=== PATIENT | female | born 1945 | race Caucasian/White ===

== ENCOUNTER 2020-04-09 13:41 | Outpatient (CLI) | payer MEDICARE, SELFPAY ==
--- NOTE | ~2020-04-09 | CT_ITS ---
EXAMINATION: CTA abdomen DATE: 04/09/2020 15:02 INDICATION: Abdominal aortic aneurysm. TECHNIQUE: Computed tomographic angiography (CTA) of the abdomen was performed with 100 mL Omnipaque- 350 intravenous contrast. Automated exposure control and iterative reconstruction technique were empl oyed. The dose-length product was 580.14 mGy-cm. Maximum intensity projection 3D-reconstructions of t he aorta and other arteries were constructed by the technologist on a separate workstation. COMPARISON: CT abdomen and pelvis 03/26/2014 FINDINGS: The visualized portions of the lung bases demonstrate mild atelectasis. A calcified right l shivani nodule and calcified right hilar lymph nodes are consistent with old granulomatous disease. No pl eural effusion. The heart size is normal. There are coronary artery calcifications. No pericardial ef fusion. There is a 4.0 cm cyst in the liver. The gallbladder is distended, likely secondary to fastin g. Calcifications in the spleen are consistent with old granulomatous disease. The pancreas and right adrenal gland are normal. There is a 3.6 cm mass in left adrenal gland measuring soft tissue attenua tion, stable from 03/26/2014, consistent with an adenoma. There is cortical thinning of the kidneys. T here are cysts in the kidneys measuring up to 15 mm on the right. There are no dilated loops of bowel . There is a lap band around the proximal stomach with normal phi angle. There is calcified atheroscl erosis of the aorta and many of the other arteries. There is a 4.0 cm fusiform aneurysm of distal jose a cending aorta. There is no abdominal aortic aneurysm. There is no significant stenosis of celiac axis or superior mesenteric artery. There is moderate stenosis of right renal artery and mild stenosis of left renal artery. There are no pathologically enlarged lymph nodes. There is no free intraperitonea l fluid. There is lumbar dextroscoliosis and severe spondylosis. There are changes of anterior fusion procedures from L2 to S1 and posterior fusion procedure at L5-S1. IMPRESSION: 1. 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 2. Moderate right renal artery stenosis. Reviewed, dictated and finalized at location A.
[2020-04-09 14:54] LABS: Estimated Glomerular Filt Rate 54
== END 2020-04-09 13:42 | disposition home or self-care (01) ==
DX: I71.4 Abdominal aortic aneurysm, without rupture (principal)
CPT/HCPCS: 36415; 74175; Q9967

== ENCOUNTER 2020-04-18 09:40 | Emergency (ER) | payer MEDICARE, SELFPAY ==
--- NOTE | ~2020-04-18 | XR_ITS ---
XR chest 2V DATE: 04/18/2020 10:05 INDICATION: Chest wall pain. TECHNIQUE: PA and lateral views COMPARISON: 03/18/2019 CT thorax FINDINGS: Normal heart size. Aortic ectasia, calcification, tortuosity. No hilar or mediastinal enl argement. No pulmonary infiltrate or consolidation, pulmonary vascular congestion or pleural effusio n or pneumothorax. Fundoplication device. Scoliosis, diffuse osteopenia. IMPRESSION: No active cardiopulmonary disease Aortic atherosclerosis Reviewed, dictated and finalized at location A.
[2020-04-18 09:48] VITALS: BP 176/94; PULSE 68; RESP 20; TEMP 36.8; O2SAT 99
--- NOTE | 2020-04-18 09:55 | ED.GENADULT ---
HPI - General Adult General Chief complaint: Unspecified Stated complaint: BREAST HURTS LIKE THE DEVIL Time Seen by Provider: 04/18/20 09:43 History of Present Illness HPI narrative: Pain under the left breast for the past week. Getting worse. Increases with bending over. Better if she lays on her stomach. She believes that there may be a lump there. No injury. She has been walking more recently. No SOB. Related Data Home Medications Medication Instructions Recorded Confirmed amlodipine 10 mg PO DAILY 04/18/20 apixaban [Eliquis] 5 mg PO BID 04/18/20 aspirin [Aspirin Low Dose] 81 mg PO DAILY 04/18/20 furosemide 20 mg PO DAILY 04/18/20 indapamide 1.25 mg PO DAILY 04/18/20 metformin 500 mg PO DAILY 04/18/20 metoprolol tartrate [Lopressor] 25 mg PO Q12H 04/18/20 omeprazole 40 mg PO DAILY 04/18/20 potassium chloride 99 meq PO DAILY 04/18/20 Allergies Allergy/AdvReac Type Severity Reaction Status Date / Time cephalexin Allergy Unknown Itching Verified 04/18/20 09:55 Cephalosporins Allergy Unknown KEFLEX-BURN Unverified 04/24/19 14:48 ING,ITCHING ,RASH Kiwi Allergy Unknown Itching Uncoded 04/18/20 09:55 Review of Systems Review of Systems: All systems reviewed & are unremarkable except as noted in HPI and below PMFSH Family History Family History (Updated 06/11/16 @ 23:19 by DOCTOR UNKNOWN) Sibling Family history of diabetes mellitus in first degree relative Family history of lung cancer Family history of malignant neoplasm of uterus Family history of heart disease in male family member before age 55 Hypertension Family history of congenital heart disease Family history of type 2 diabetes mellitus Mother Family history of malignant neoplasm of brain Social History Social History Smoking status: Former smoker Second hand tobacco smoke exposure: No Smoking end date: 11/14/12 Alcohol intake: never Gender identity (if verbalized by the patient): Female Exam Const: General: no acute distress and alert Nutritional Appearance: well nourished Orientation/consciousness: patient oriented x3 HENMT: Head: normal to inspection Chest: Chest palpation & inspection: tenderness (under left preast) Other: Small cutaneous cyst without tenderness or sign of infection Resp: Effort & Inspection: normal respiratory effort Auscultation: clear to auscultation bilaterally Cardio: Rate: regular rate Rhythm: regular rhythm Neuro: General: patient oriented x3, moves all extremities and CN's II-XI intact bilaterally Speech: normal speech Course Vital Signs Vital signs: Vital Signs Temperature 36.8 C 04/18/20 09:48 Pulse Rate 68 04/18/20 09:48 Respiratory Rate 20 04/18/20 09:48 Blood Pressure 176/94 H 04/18/20 09:48 Pulse Oximetry 99 04/18/20 09:48 Temperature 36.7 C 04/18/20 12:19 Pulse Rate 70 04/18/20 12:19 Respiratory Rate 16 04/18/20 12:19 Blood Pressure 152/72 H 04/18/20 12:19 Pulse Oximetry 99 04/18/20 12:19 Medical Decision Making MDM Narrative Medical decision making narrative: She seems to have a chest wall strain. x-ray negative. I will start muscle relaxer and she can follow-up with PCP in a few days. Vital Signs Vital Signs: Vital Signs Temperature 36.8 C 04/18/20 09:48 Pulse Rate 68 04/18/20 09:48 Respiratory Rate 04/18/20 09:48 Blood Pressure 176/94 H 04/18/20 09:48 Pulse Oximetry 99 04/18/20 09:48 Temperature 36.7 C 04/18/20 12:19 Pulse Rate 70 04/18/20 12:19 Respiratory Rate 16 04/18/20 12:19 Blood Pressure 152/72 H 04/18/20 12:19 Pulse Oximetry 99 04/18/20 12:19 Discharge Plan Discharge Clinical Impression: Anterior chest wall pain Patient Disposition: Home, Self-Care Condition: Stable Instructions: Chest Wall Pain (ED) Prescriptions: New cyclobenzaprine 10 mg tablet 10 mg PO TID PRN (Reason: chest wall pain) Qty: 10 RF: 0 acetaminophen [Tylenol Arthritis
[2020-04-18 11:15] VITALS: BP 158/68; PULSE 72; RESP 18; O2SAT 99
--- NOTE | 2020-04-18 11:16 | PC.NURSE ---
Introduced to patient and report received from RN.
[2020-04-18 12:19] VITALS: BP 152/72; PULSE 70; RESP 16; TEMP 36.7; O2SAT 99
== END 2020-04-18 12:29 | disposition home or self-care (01) ==
PROVIDERS: Emergency Provider Emergency Medicine; PCP Family Medicine
DX: R07.89 Other chest pain (principal); Z79.01 Long term (current) use of anticoagulants; Z79.84 Long term (current) use of oral hypoglycemic drugs; Z87.891 Personal history of nicotine dependence; I70.0 Atherosclerosis of aorta
CPT/HCPCS: 71046; 99283

== ENCOUNTER 2020-07-22 14:38 | Outpatient (CLI) | payer MEDICARE, SELFPAY ==
--- NOTE | ~2020-07-22 | MM_ITS ---
EXAMINATION: MM screening joce BI w willard HISTORY: Screening TECHNIQUE: Craniocaudal and mediolateral oblique 3-D tomosynthesis images were obtained and synthetic 2-D images were generated. CAD analysis was submitted and interpreted. COMPARISON: No prior mammogram is available for comparison at this institution. BREAST PARENCHYMAL COMPOSITION: There are scattered areas of fibroglandular density. FINDINGS: There is focal architectural distortion upper outer quadrant of the left breast, posterior depth. There is no mammographic evidence for malignancy in the right breast. IMPRESSION: 1. Focal architectural distortion upper outer left breast. 2. Additional mammographic views and possible breast ultrasound are recommended. BI-RADS Category 0: Incomplete: Needs additional imaging evaluation. Reviewed, dictated and finalized at location A. IMPRESSION: 1. Focal architectural distortion upper outer left breast. 2. Additional mammographic views and possible breast ultrasound are recommended . BI-RADS Category 0: Incomplete: Needs additional imaging evaluation.
--- NOTE | ~2020-07-22 | US_ITS ---
EXAMINATION: US carotid duplex BI DATE: 07/22/2020 15:26 INDICATION: Loss of vision. Carotid bruit. TECHNIQUE: Grayscale, color Doppler, and pulsed Doppler images of the cervical carotid arteries were obtained. The degree of vessel stenosis is placed in one of the following categories: normal, <50%, 5 0-69%, >=70% but less than near-occlusion, near-occlusion, or total occlusion. Note that percent sten osis relative to normal distal artery lumen diameter is indirectly measured from velocity measurement s as described by Kenan, et al. Radiology 2003; 229:340-346. Notes: Normal: Peak systolic velocity <125 centimeters/sec and no plaque <50%. Peak systolic velocity <125 ( EDV <40; ICA/CCA PSV ratio <2.0; used these factors only a tandem lesions or low cardiac output or co ntralateral disease) 50-69 %: PSV 125-230 (EDV 40-100; ratio 2-4) >= 70% but less than near occlusion: PSV greater than 230 (EDV > 100; ratio> 4.0) Near Occlusion: PSV that is variable; markedly narrowed lumen Occlusion: Absent flow on color/spectral Doppler and no lumen on sanz scale. COMPARISON: None. FINDINGS: RIGHT: The right common carotid artery (CCA) peak systolic velocity (PSV) is 72 cm/s. The right internal car otid artery (ICA) PSV is 119 cm/s. The right ICA end-diastolic velocity (EDV) is 19 cm/s. The right I CA/CCA PSV ratio is 1.7. The external carotid artery (ECA) PSV is 157 cm/s. There is antegrade flow i n the right vertebral artery. LEFT: The left CCA PSV is 82 cm/s. The left ICA PSV is 108 cm/s. The left ICA EDV is 36 cm/s. The left ICA/ CCA PSV ratio is 1.3. The ECA PSV is 97 cm/s. There is antegrade flow in the left vertebral artery. IMPRESSION: 1. Less than 50% stenosis in the right internal carotid artery by sonographic criteria. 2. Less than 50% stenosis in the left internal carotid artery by sonographic criteria. Reviewed, dictated and finalized at location A. IMPRESSION: 1. Less than 50% stenosis in the right internal carotid artery by sonographic c bebeto. 2. Less than 50% stenosis in the left internal carotid artery by sonographic cr gladis.
== END 2020-07-22 14:39 | disposition home or self-care (01) ==
PROVIDERS: PCP Family Medicine; Visit Provider Family Medicine
DX: Z12.31 Encounter for screening mammogram for malignant neoplasm of breast (principal); M79.89 Other specified soft tissue disorders; R92.8 Other abnormal and inconclusive findings on diagnostic imaging of breast; I65.23 Occlusion and stenosis of bilateral carotid arteries
CPT/HCPCS: 77063; 77067; 93880

== ENCOUNTER 2020-08-11 13:06 | Outpatient (CLI) | payer MEDICARE, SELFPAY ==
--- NOTE | ~2020-08-11 | MMUS_ITS ---
EXAMINATION: MM diagnostic mammo unilat LT, US breast LT limited HISTORY: Left breast architectural distortion on screening mammogram TECHNIQUE: Additional 3-D tomosynthesis images of the left breast were performed and synthetic 2-D im ages were generated. CAD analysis was submitted and interpreted. High resolution limited left breast ultrasound was performed. COMPARISON: 07/22/2020, 05/10/2019, 04/10/2019 FINDINGS: MAMMOGRAPHIC FINDINGS: There is architectural distortion in the posterior third of the slightly upper breast at the 2:00 loc ation 10 cm from the nipple. In addition, there is a an approximately 6 mm spiculated mass in the mid dle third of the central, slightly outer breast 7 cm from the nipple at the 3:00 location. ULTRASOUND: There is an approximately 7 mm x 4 mm hypoechoic mass with posterior shadowing and angular and indist inct margins at the 3:00 location 2 cm from the nipple. No definite sonographic correlate is identifi ed for the architectural distortion identified at the 2:00 location on the mammogram. IMPRESSION: 1. Architectural distortion in the posterior third of the left breast and mass in the central, slight ly outer breast, both suspicious findings. 2. Biopsy is recommended. Could consider ultrasound guided biopsy of the mass and 3-D tomosynthesis g uided biopsy of the architectural distortion or 3-D tomosynthesis guided biopsy of both areas. BI-RADS category 4, suspicious findings. Reviewed, dictated and finalized at location A. IMPRESSION: 1. Architectural distortion in the posterior third of the left breast and mass in the central, slightly outer breast, both suspicious findings. 2. Biopsy is recommended. Could consider ultrasound guided biopsy of the mass a nd 3-D tomosynthesis guided biopsy of the architectural distortion or 3-D tomos ynthesis guided biopsy of both areas. BI-RADS category 4, suspicious findings.
== END 2020-08-11 13:07 | disposition home or self-care (01) ==
PROVIDERS: PCP Family Medicine; Visit Provider Family Medicine
DX: R92.8 Other abnormal and inconclusive findings on diagnostic imaging of breast (principal)
CPT/HCPCS: 76642; 77065

== ENCOUNTER 2021-01-29 10:53 | Outpatient (CLI) | payer MEDICARE, SELFPAY ==
--- NOTE | ~2021-01-29 | US_ITS ---
EXAMINATION: US venous doppler [facility] DATE: 01/29/2021 11:46 INDICATION: Left calf pain. TECHNIQUE: Grayscale ultrasound images without and with compression and Doppler ultrasound images of the left lower extremity veins were obtained. COMPARISON: Ultrasound 05/06/2017 FINDINGS: The visualized portions of left common femoral vein, profunda (deep) femoral vein, femoral vein, popl iteal vein, and greater saphenous vein outflow are patent. The calf veins are not well-visualized. IMPRESSION: 1. No deep venous thrombosis. Reviewed, dictated and finalized at location A.
== END 2021-01-29 10:54 | disposition home or self-care (01) ==
PROVIDERS: PCP Family Medicine
DX: C50.919 Malignant neoplasm of unspecified site of unspecified female breast (principal); M79.662 Pain in left lower leg
CPT/HCPCS: 93971

== ENCOUNTER 2021-02-11 11:02 | Observation (INO) | payer MEDICARE, SELFPAY ==
[2021-02-11] VITALS (15 sets, daily range): BP systolic 140–190; BP diastolic 55–95; PULSE 50–78; RESP 13–25; TEMP 36.1–36.6; O2SAT 96–100; BMI 42.2
--- NOTE | ~2021-02-11 | CT_ITS ---
EXAMINATION: CT brain wo con DATE: 02/11/2021 12:41 INDICATION: Dizziness TECHNIQUE: Computed tomography (CT) of the head was performed without intravenous contrast. Sagittal and coronal reconstructions were performed. The mA was adjusted according to patient size. Iterative reconstruction technique was employed. The dose-length product was 605.33 mGy-cm. COMPARISON: head CT dated 04/24/2019 FINDINGS: No acute intracranial hemorrhage, acute infarction or abnormal extra axial fluid collection. There is moderate scattered white matter hypoattenuation consistent with chronic small vessel ischemic diseas e. Symmetric prominence of the sulci consistent with mild age-appropriate diffuse cerebral volume los s. Ventricles are normal and symmetric. No mass/mass effect. Changes of bilateral intraocular lens r eplacement. The orbits, paranasal sinuses and mastoid air cells are normal. Intracranial calcified ce rebral atherosclerosis is noted. IMPRESSION: 1. No acute intracranial process. 2. Age-related changes including mild diffuse volume loss and moderate scattered white matter hypoatt enuation consistent with chronic small vessel ischemic disease. Reviewed, dictated and finalized at location A. IMPRESSION: 1. No acute intracranial process. 2. Age-related changes including mild diffuse volume loss and moderate scattere d white matter hypoattenuation consistent with chronic small vessel ischemic di sease.
--- NOTE | ~2021-02-11 | US_ITS ---
EXAMINATION: US carotid duplex BI DATE: 02/12/2021 11:21 INDICATION: Speech and language deficit. Dizziness. TECHNIQUE: Grayscale, color Doppler, and pulsed Doppler images of the cervical carotid arteries were obtained. The degree of vessel stenosis is placed in one of the following categories: normal, <50%, 5 0-69%, >=70% but less than near-occlusion, near-occlusion, or total occlusion. Note that percent sten osis relative to normal distal artery lumen diameter is indirectly measured from velocity measurement s as described by Kenan, et al. Radiology 2003; 229:340-346. COMPARISON: None. FINDINGS: RIGHT: The right common carotid artery (CCA) peak systolic velocity (PSV) is 103 cm/s. The right internal ca rotid artery (ICA) PSV is 77 cm/s. The right ICA end-diastolic velocity (EDV) is 18 cm/s. The right I CA/CCA PSV ratio is 0.8. Grayscale and color Doppler images yield an estimate of <50% diameter reduct ion from plaque in the ICA. The external carotid artery (ECA) PSV is 82 cm/s. There is antegrade flow in the right vertebral artery. LEFT: The left CCA PSV is 78 cm/s. The left ICA PSV is 78 cm/s. The left ICA EDV is 21 cm/s. The left ICA/C CA PSV ratio is 1.0. Grayscale and color Doppler images yield an estimate of <50% diameter reduction from plaque in the ICA. The ECA PSV is 57 cm/s. There is antegrade flow in the left vertebral artery. IMPRESSION: 1. <50% stenosis in the right internal carotid artery. 2. <50% stenosis in the left internal carotid artery. Reviewed, dictated and finalized at location A.
--- NOTE | ~2021-02-11 | CT_ITS ---
EXAMINATION: CT lumbar spine wo con EXAM DATE: 02/12/2021 11:19 INDICATION: Degenerative disc disease. Back pain. TECHNIQUE: Spiral CT of the lumbar spine was performed without contrast. Axial, coronal and sagittal images were reviewed. The dose-length product (DLP) for this examination was 1300.23 mGy-cm. The exposure was tailored according to patient size (auto mA exposure control), and iterative reconstruct ion (ASIR) was used as additional dose reduction technique. Correlation is made to lumbar MRI 2. FINDINGS: There has been interval fusion of the lumbar spine from L2 through S1, with interbody devic es at each of these levels, solid bone bridging L2-L5 and incomplete solid bone bridging at L5-S1. Al so posterior fusion with pedicular screws at L5-S1. A portion of the left S1 pedicular screw traverse s the S1-2 neural foramina. There are no acute fractures identified. There is moderate dextroscoliosi s centered at the L2 level. Moderate to severe disc disease at L1-2, which may have early osseous kadeem dging, effusion along its concave left side. Moderate disc disease at T12-L1. Incidental note made of saccular aortic aneurysm just above the aortic hiatus up to 4.6 cm. There is also a 3 cm low-density left adrenal gland lesion consistent with adenoma. Level by level evaluation: T12-L1: There is a minimal diffuse disc bulge. Facet arthropathy: Mild. Neural foraminal stenosis: No stenosis. Central canal stenosis: No stenosis. L1-L2: There is a mild diffuse disc bulge. Facet arthropathy: Mild to moderate. Neural foraminal stenosis: Moderate to severe left, mild right. Central canal stenosis: No stenosis. L2-L3: This level is fused. Facet arthropathy: Moderate, partially fused. Neural foraminal stenosis: No stenosis. Central canal stenosis: No stenosis. L3-L4: This level is fused. Facet arthropathy: Moderate, partially fused. Neural foraminal stenosis: Mild left. Central canal stenosis: No stenosis. L4-L5: This level is fused. Facet arthropathy: Moderate, partially fused. Neural foraminal stenosis: Mild to moderate right, mild left. Central canal stenosis: No stenosis. L5-S1: This level is fused. Facet arthropathy: Moderate, partially fused on the right. Neural foraminal stenosis: Moderate to severe right, mild left. Central canal stenosis: No stenosis. IMPRESSION: 1. Fusion L2-S1. 2. Moderate upper lumbar dextroscoliosis. 3. Moderate to severe left neural foraminal stenosis at L1-2 and right neural foraminal stenosis at L5-S1, the most narrowed levels. 4. Incidental lower thoracic aortic saccular 4.6 cm aneurysm. 5. No acute lumbar findings. Reviewed, dictated and finalized at location A.
--- NOTE | ~2021-02-11 | MR_ITS ---
EXAMINATION: MR brain/brain stem wo/w con EXAM DATE: 02/12/2021 10:50 INDICATION: Ataxia, bilateral leg weakness. TECHNIQUE: Magnetic resonance imaging (MRI) of the brain/brain stem obtained without contrast. Sagit magalys T1, axial diffusion, gradient echo (T2*), T1, T2, FLAIR sequences obtained. Patient was then inj ected with 18 cc intravenous Multihance contrast. Axial and coronal postcontrast T1 weighted sequence s obtained. Comparison is made to prior examination from 04/18/2010. Correlation was made with head CT from yesterday. FINDINGS: There are no areas of restricted diffusion to suggest acute infarction. There is no acute hemorrhage seen on the T2*, a hemosiderin sensitive sequence. No intraparenchymal brain mass lesion. There is punctate old left thalamic the lacunar infarction better seen on CT. Dilated perivascular spaces. There is moderate periventricular and subcortical T2/FLAIR signal hyperintensity, nonspecifi c but probably related to small vessel ischemic disease (microangiopathy). There is mild prominence of the sulci and ventricles related to cerebral atrophy. There are no extra-axial collections. Fl ow voids are seen in the cerebral arteries on the T2-weighted sequences consistent with their expecte d patency. Patient has had bilateral ocular lens surgery. Soft tissue is unremarkable. IMPRESSION: 1. No acute intracranial findings. 2. Chronic age related findings. 3. Punctate old left thalamic lacunar infarction. Reviewed, dictated and finalized at location A.
--- NOTE | 2021-02-11 11:11 | ECG_ITS ---
Measurements Intervals [place]irt[place] Rate: 53 P: 33 PA: 188 QRS: -26 QRSD: 94 T: 4 QT: 428 QTc: 403 Interpretive Statements SINUS BRADYCARDIA DELAYED PRECORDIAL R/S TRANSITION VOLTAGE CRITERIA FOR LVH BORDERLINE T WAVE ABNORMALITY- INFERIOR LEADS BASELINE ARTIFACT- I, II, III, AVR, AVL, V2, V6 BORDERLINE ECG Electronically Signed On 02-11-2021 11:40:25 CDT by Unruly Mcgowan D.O.
[2021-02-11 11:29] LABS: Add Urine Microscopic? NO; Appearance Urine Clear (Clear); Bilirubin Urine Negative (Negative); Blood Urine Negative (Negative); Color Urine Straw (Yellow); Glucose Urine UA Negative (Negative); Ketones Urine Negative (Negative); Leukocyte Esterase Ur Negative LEU/UL (Negative); Nitrate Urine Negative (Negative); Protein Urine Negative (Negative); Specific Grav Ur 1.008 (1.001-1.035); Urobilinogen Urine Negative mg/dL (<2.0)
--- NOTE | 2021-02-11 11:40 | PC.NURSE ---
Unable to obtain labs/iv access x 2, called Sharona MILLIGAN from vascular access and will come initiate IV and draw labs. Pt aware.
[2021-02-11 12:29] LABS: Basophils Absolute Auto 0.1 K/mm3 (0.0-0.1); Basophils Percent Auto 0.7 % (0.2-1.2); Eosinophils Absolute Auto 0.4 K/mm3 (0-0.3); Eosinophils Percent Auto 3.5 % (0-4.4); Hematocrit 33.8 % (37.0-47.0); Immature Granulocyte Absolute 0.13 K/mm3 (0.00-0.031); Immature Granulocyte Percent A 1.2 % (0-0.5); Lymphocytes Percent Auto 18.7 % (18.3-44.2); Mean Corpuscular HGB Conc 32.5 g/dl (32-36); Mean Corpuscular Hemoglobin 28.9 pg (26-34); Mean Corpuscular Volume 88.9 fl (80-100); Mean Platelet Volume 10.2 fl (7.4-10.4); Monocytes Absolute Auto 0.5 K/mm3 (0.1-0.6); Monocytes Percent Auto 4.7 % (2.6-8.5); Neutrophils Absolute Auto 7.6 K/mm3 (1.3-6.7); Neutrophils Percent Auto 71.2 % (45.5-73.1); Platelet Count Result 250 k/mm3 (150-375); Red Cell Distribution Width 13.4 % (11.5-14.5); White Blood Count 10.7 K/mm3 (4.5-10.0)
--- NOTE | 2021-02-11 12:32 | PC.NURSE ---
Pt to CT scan via stretcher at this time.
[2021-02-11 12:44] LABS: Alanine Aminotransferase 14 U/L (4-35); Albumin Level 4.2 g/dL (3.5-5.1); Alkaline Phosphatase 84 U/L (38-126); Anion Gap 5 mmol/L (8-16); Aspartate Amino Transferase 22 U/L (14-36); Bilirubin,Total 0.3 mg/dL (0.2-1.3); Blood Urea Nitrogen 26 mg/dL (7-17); Carbon Dioxide 31 mmol/L (22-30); Chloride 104 mmol/L (98-107); Estimated CRCL calculation 52 ml/min; Estimated Glomerular Filt Rate > 60; Glucose 124 mg/dL (65-105); Potassium 4.5 mmol/L (3.4-5.0); Sodium 140 mmol/L (137-145)
[2021-02-11] MEDS: MECLIZINE HCL 25 MG TABLET PO (13:15)
[2021-02-11] MEDS: SODIUM CHLORIDE 0.9% IV 1,000 ML 999 ML IV CONT (13:15)
--- NOTE | 2021-02-11 13:30 | ED.WEAKNESS ---
HPI - Weakness History of Present Illness HPI Narrative: Patient is a 45-year-old female who presents to the ER with weakness. Patient reports she was getting some rugs out of a utility closet when her right leg can give out on her and she fell to the ground. She then felt too weak to get back up. Denies paralysis in her legs or arms. No slurred speech or facial droop. Reports she gets dizziness with positional change. No urinary frequency urgency or dysuria. No chest pain or chest pressure. Did not strike her head or lose consciousness. <Colby Chandler MD - Last Filed: 02/11/21 15:23> Related Data Home medications: Home Medications Medication Instructions Recorded Confirmed amlodipine 10 mg PO DAILY 02/11/21 02/11/21 apixaban [Eliquis] 5 mg PO BID 02/11/21 02/11/21 atorvastatin 10 mg PO DAILY 02/11/21 02/11/21 carboxymethylcell-glycerin(PF) 1 drp EACH EYE BID PRN 02/11/21 02/11/21 [Refresh Relieva PF] docusate sodium [Stool Softener] 50 mg PO DAILY PRN 02/11/21 02/11/21 letrozole 2.5 mg PO DAILY 02/11/21 02/11/21 magnesium 250 mg PO DAILY 02/11/21 02/11/21 melatonin 5 mg PO HS PRN 02/11/21 02/11/21 metformin 1,000 mg PO DAILY 02/11/21 02/11/21 metformin 500 mg PO DAILY 02/11/21 02/11/21 metoprolol tartrate 25 mg PO BID 02/11/21 02/11/21 mirabegron [Myrbetriq] 50 mg PO DAILY 02/11/21 02/11/21 nkjgbusffocz-nkz-hscd-FA-vit K 1 tablet PO DAILY 02/11/21 02/11/21 [Adults Multivitamin] omeprazole 40 mg PO DAILY 02/11/21 02/11/21 potassium 99 mg PO DAILY 02/11/21 02/11/21 vitamins A,C,B-dtjr-cdyqbe 1 tablet PO BID 02/11/21 02/11/21 [Ocuvite Preservision] <Colby Chandler MD - Last Filed: 02/11/21 15:23> Allergies/Adverse reactions: Allergies Allergy/AdvReac Type Severity Reaction Status Date / Time cephalexin Allergy Unknown Itching Verified 02/11/21 11:10 Cephalosporins Allergy Unknown KEFLEX-BURN Verified 02/11/21 11:10 ING,ITCHING ,RASH Kiwi Allergy Unknown Itching Uncoded 02/11/21 11:10 <Colby Chandler MD - Last Filed: 02/11/21 15:23> Review of Systems Review of Systems: All systems reviewed & are unremarkable except as noted in HPI and below <Colby Chandler MD - Last Filed: 02/11/21 15:23> Constitutional: Constitutional: Denies chills, Denies fever(s) and Reports weakness <Colby Chandler MD - Last Filed: 02/11/21 15:23> ENT: Denies nasal congestion and Denies sore throat <Colby Chandler MD - Last Filed: 02/11/21 15:23> Cardiovascular: Cardiovascular: Denies chest pain, Denies rapid heart rate and Denies radiating jaw, neck or arm pain <Colby Chandler MD - Last Filed: 02/11/21 15:23> Respiratory: Respiratory: Denies cough, Denies dyspnea and Denies wheezing <Colby Chandler MD - Last Filed: 02/11/21 15:23> Neurologic: Reports dizziness, Denies syncope, Denies headache(s), Denies focal weakness and Denies numbness <Colby Chandler MD - Last Filed: 02/11/21 15:23> [facility] Past Medical History Medical History: Medical History (Updated 02/11/21 @ 13:45 by Colby Chandler MD) Atrial fibrillation Diabetes History of depression History of left heart catheterization Hypercholesterolemia Hypertension Hypothyroidism <Colby Chandler MD - Last Filed: 02/11/21 15:23> Surgical History Surgical History: Surgical History (Updated 02/11/21 @ 13:45 by Colby Chandler MD) History of appendectomy History of hysterectomy History of laparoscopic adjustable gastric banding <Colby Chandler MD - Last Filed: 02/11/21 15:23> Family History Family History: Family History (Updated 06/11/16 @ 23:19 by DOCTOR UNKNOWN) Sibling Family history of diabetes mellitus in first degree relative Family history of lung cancer Family history of malignant neoplasm of uterus Family history of heart disease in male family member before age 55 Hypertension Family history of congenital heart disease Family history of type 2
--- NOTE | 2021-02-11 14:48 | PC.NURSE ---
Pt unable to ambulate, had 2 person assist for getting out of stretcher and states My legs are just too weak. They feel like they cant hold me up. Pt states she does not normally use a walker to get around. Pt states I just feel like my legs are collapsing under me. Bilat leg weakness, diag w/ neuropathy in past for left leg, denies taking PO meds for this. EDP made aware.
--- NOTE | 2021-02-11 18:39 | ADMGEN ---
This patient, Evonne Mancilla, was admitted to 2 Medical Room 244-01. Patient/family oriented to hospital policies and general routines including ID bracelet, bed and alarms, visiting hours, pain management, procedures, bathroom and other care routines, personal items, smoking policy, room service/diet, and visiting hours. Information on how to activate the Rapid Response Team has been discussed. Patient/Family are encouraged to report perceived risks to care and to ask questions if they do not understand what they are told or what they should do.
[2021-02-11 21:26] LABS: Glucose Point of Care 161 (65-105)
--- NOTE | 2021-02-11 22:03 | PM.IMHP ---
H&P: HPI History of Present Illness Date/Time: 02/11/21 22:03 this is a 75-year-old female patient who has a history of neuropathy. She has had no prior history of any CVAs. She does have a history of atrial fibrillation and is on Eliquis. Patient is diabetic and her blood sugar was anywhere from 124-161 today. The patient has had multiple falls in the past. She does have a walker and states she uses it when she needs it. However today she was picking up a rug said thrown the washer and she said she felt funny in her face and her right leg went out and she fell and could not get up. The patient is having some weakness to her lower extremities. She is now able to raise both of her legs. The left appears more weak than the right and she stated that how typically is but today her right was weaker than the left and her leg gave out from underneath of her. She did not slip on anything that she could tell. She did not hit her head. Patient's head CT was read as no acute intracranial process. Age-related changes including mild diffuse volume loss and moderate scattered white matter hypoattenuation consistent with chronic small vessel ischemic disease. On 01/29/2021 which was read as no deep vein thrombosis. She is not complaining of any discomfort in her lower extremities. She is not feeling any dizziness at this time. She has not started any new medication. She lives home alone and has a call alert button. No fever no chills. No urinary symptoms. The patient was moving herself in bed without difficulty. The patient was not able to get up and walk today in the emergency room and nearly fell backwards. The ER physician felt that the patient needed to stay overnight to be evaluated for possible CVA. H&H 11.0 in 33.8. The patient is being admitted for observation on the date of service of 02/11/2021. Chief Complaint: Weakness Review of Systems Review of Systems: Narrative: As per HPI All systems reviewed & are unremarkable except as noted in HPI and below Constitutional: Constitutional: Reports as per HPI and Reports no additional constitutional complaints Eyes: Eyes: Reports as per HPI and Reports no additional eye complaints ENT: Reports system reviewed and no additional complaints, except as documented and Reports Normal hearing present Cardiovascular: Cardiovascular: Reports no additional cardiovascular complaints Respiratory: Respiratory: Reports no additional respiratory complaints and Reports no additional respiratory complaints Gastrointestinal: Gastrointestinal: Reports as per HPI and Reports no additional gastrointestinal complaints Musculoskeletal: Musculoskeletal: Reports no additional musculoskeletal complaints Integumentary/Breasts: Skin/Breast: Reports system reviewed and no additional complaints, except as docu and Reports as per HPI Neurologic: Reports system reviewed and no additional complaints, except as documented, Reports as per HPI and Reports Normal hearing present Psychiatric: Psychiatric: Reports no additional psychiatric complaints and Reports as per HPI Endocrine: Endocrine: Reports no additional endocrine complaints Hematologic/Lymphatic: Hematologic/Lymphatic: Reports no additional hematologic/lymphatic complaints Allergic/Immunologic: Allergic/Immunologic: Reports no additional allergic/immunologic complaints [facility] Past Medical History Medical History (Updated 02/11/21 @ 22:21 by Ignacia Levy NP) Abdominal aortic aneurysm Atrial fibrillation On Eliquis Chronic GERD Degenerative disc disease Diabetes History of depression History of left heart catheterization Hypercholesterolemia Hypertension Hypothyroidism Mild chronic obstructive pulmonary disease As for PFTs in 2016 Vocal cord paralysis Weakness Surgical History Surgical History (Updated 02/11/21 @ 22:13 by Ignacia Levy NP) H/O cardiac catheterization X2 without intervention H/O colonoscopy with polypectomy H/O thyroi
[2021-02-12] VITALS (9 sets, daily range): BP systolic 150–170; BP diastolic 52–98; PULSE 56–80; RESP 16–18; TEMP 36.2–36.8; O2SAT 96–99
--- NOTE | 2021-02-12 | ECHO_ITS ---
Patient Info Name: Evonne Mancilla Age: 75 years : 1945 Gender: Female Ht: 60 in Wt: 216 lbs BSA: 2.09 m2 HR: 60 bpm BP: 160 / 64 mmHg Heart Rhythm: Sinus Rhythm Technical Quality: Good Exam Date: 02/12/2021 9:21 AM Exam Location: [facility] Exam Room: 244 Patient Status: Inpatient Admit Date: 02/11/2021 Staff Ordering Physician: Ignacia Levy NP Track Welder: Karen Aquino RDCS Attending Provider: Jorge Jauregui PA-C Referring Physician: Mildred TEJEDA; Exam Type: CA echo doppler color flow Study Info Indications - WEAKNESS Complete two-dimensional, color flow and Doppler transthoracic echocardiogram is performed. Summary 1. Complete two-dimensional, color flow and Doppler transthoracic echocardiogram is performed. 2. Left ventricular chamber dimension is normal. 3. Left ventricular systolic function is normal, estimated at 60-65%. 4. There is mildly increased left ventricular wall thickness. 5. The left ventricular diastolic function is grade I diastolic dysfunction. 6. There is mild aortic valve sclerosis. 7. There is mild aortic valve regurgitation. 8. There is mild mitral valve regurgitation. 9. There is mild tricuspid valve regurgitation. 10. Mild pulmonary hypertension, estimated pulmonary arterial systolic pressure is 38 mmHg. 11. Cystic structure seen in the liver. Probable hepatic cyst or even the gallbladder but recommend dedicated right upper quadrant ultrasound. Left Ventricle Left ventricular chamber dimension is normal. Left ventricular systolic function is normal, estimated at 60-65%. There is mildly increased left ventricular wall thickness. The left ventricular diastolic function is grade I diastolic dysfunction. Right Ventricle Right ventricular chamber dimension is normal. Right ventricular systolic function is normal. Left Atria Left atrial chamber dimension is normal. Right Atria Right atrial chamber dimension is normal. Atrial Septum Intact interatrial septum visualized by color flow imaging. Aortic Valve The aortic valve is trileaflet. There is mild aortic valve sclerosis. There is no aortic valve stenosis. There is mild aortic valve regurgitation. Pulmonic Valve The pulmonic valve is normal. There is no pulmonic valve stenosis. There is trace pulmonic regurgitation. Mitral Valve The mitral valve has calcified annulus. There is no mitral valve stenosis. There is mild mitral valve regurgitation. Tricuspid Valve The tricuspid valve leaflets are normal. There is no significant tricuspid valve stenosis. There is mild tricuspid valve regurgitation. Mild pulmonary hypertension, estimated pulmonary arterial systolic pressure is 38 mmHg. Other Findings Cystic structure seen in the liver. Probable hepatic cyst or even the gallbladder but recommend dedicated right upper quadrant ultrasound. Pericardium/Pleural The pericardium appears normal. There is no pericardial effusion. Inferior Vena Cava Normal inferior vena cava with >50% collapse upon inspiration consistent with normal right atrial pressure, 10 mmHg. Aorta The aortic root size at the sinus of Valsalva is normal. The prox ascending aorta size is normal. There is mild aortic atherosclerosis. Left Ventricular Outflow Tract Name Value Normal
[2021-02-12] MEDS: METOPROLOL TARTRATE 25 MG TABLET PO ×2 (00:03→09:19)
[2021-02-12] MEDS: APIXABAN 5 MG TABLET PO ×2 (00:04→09:20)
[2021-02-12 06:06] LABS: Basophils Absolute Auto 0.1 K/mm3 (0.0-0.1); Basophils Percent Auto 0.7 % (0.2-1.2); Eosinophils Absolute Auto 0.4 K/mm3 (0-0.3); Eosinophils Percent Auto 3.5 % (0-4.4); Hemoglobin 10.7 g/dL (12.0-15.0); Immature Granulocyte Percent A 0.9 % (0-0.5); Lymphocytes Percent Auto 16.7 % (18.3-44.2); Mean Corpuscular HGB Conc 32.4 g/dl (32-36); Mean Corpuscular Hemoglobin 28.5 pg (26-34); Mean Platelet Volume 10.4 fl (7.4-10.4); Monocytes Absolute Auto 0.6 K/mm3 (0.1-0.6); Monocytes Percent Auto 5.7 % (2.6-8.5); Neutrophils Absolute Auto 7.8 K/mm3 (1.3-6.7); Neutrophils Percent Auto 72.5 % (45.5-73.1); Platelet Count Result 252 k/mm3 (150-375); Red Blood Count 3.75 M/mm3 (4.2-5.4); Red Cell Distribution Width 13.4 % (11.5-14.5); White Blood Count 10.8 K/mm3 (4.5-10.0)
[2021-02-12 06:24] LABS: Hemoglobin A1C 6.4 % (<5.7)
[2021-02-12 06:25] LABS: Potassium 3.8 mmol/L (3.4-5.0)
[2021-02-12 06:27] LABS: Lactic Acid Reflex 1.1 mmol/L (0.7-2.1)
[2021-02-12 06:35] LABS: Alanine Aminotransferase 13 U/L (4-35); Alkaline Phosphatase 91 U/L (38-126); Anion Gap 5 mmol/L (8-16); Aspartate Amino Transferase 19 U/L (14-36); Bilirubin,Total 0.2 mg/dL (0.2-1.3); Blood Urea Nitrogen 22 mg/dL (7-17); Calcium 9.1 mg/dL (8.4-10.2); Carbon Dioxide 33 mmol/L (22-30); Chloride 103 mmol/L (98-107); Estimated CRCL calculation 55 ml/min; Estimated Glomerular Filt Rate > 60; Glucose 126 mg/dL (65-105); Magnesium 1.8 mg/dL (1.6-2.3); Sodium 141 mmol/L (137-145)
[2021-02-12 07:49] LABS: Glucose Point of Care 124 (65-105)
[2021-02-12] MEDS: MIRABEGRON 50 MG ER TABLET PO (09:19)
[2021-02-12] MEDS: LETROZOLE (*CHEMO) 2.5 MG TABLET PO (09:19)
[2021-02-12] MEDS: OPTI-GEN TAB 1 TABLET PO (09:19)
[2021-02-12] MEDS: MAGNESIUM OXIDE 200 MG TABLET PO (09:19)
[2021-02-12] MEDS: metFORMIN HCL XR 500 MG TAB.SR.24H 1000 MG PO (09:19)
[2021-02-12] MEDS: ATORVASTATIN 10 MG TABLET PO (09:20)
[2021-02-12] MEDS: PANTOPRAZOLE 40 MG TABLET PO (09:20)
[2021-02-12] MEDS: amLODIPine BESYLATE 5 MG TABLET 10 MG PO (09:20)
[2021-02-12] MEDS: MULTIVITAMINS /C LUTEIN (CENTRUM SILVER) TABLET *BKC 1 TAB PO (09:21)
[2021-02-12 12:20] LABS: Glucose Point of Care 92 (65-105)
--- NOTE | 2021-02-12 12:43 | PM.DS ---
DS: Admitting Diagnosis Admitting Diagnosis Admitting Diagnosis: Weakness DS: Discharge Diagnosis Discharge Diagnosis (1) Weakness: Code(s): R53.1 - Weakness Status: Acute Assessment and Plan: Patient feels better today. Imaging thus far (Brain MRI, Head CT, Carotid doppler, lumbar CT) unremarkable for acute findings; no acute CVA noted. PT and OT evaluation rec HH therapy. Unclear etiology, but suspect likely from deconditioning on top of chronic back issues; patient admits to not walking as much recently given COVID lock downs. Will discharge today, likely home, +/- HH therapy CC following F/u with PCP Rec Echo as outpatient if PCP agrees (2) Hypothyroidism: Code(s): E03.9 - Hypothyroidism, unspecified Status: Chronic Assessment and Plan: TSH WNL continue levothyroxine (3) Hypertension: Code(s): I10 - Essential (primary) hypertension Status: Chronic Assessment and Plan: BP a bit elevated at 150s sys this morning prior to morning medications Continue with home medications. (4) Hypercholesterolemia: Code(s): E78.00 - Pure hypercholesterolemia, unspecified Status: Chronic Assessment and Plan: Continue with home medications. (5) History of depression: Code(s): Z86.59 - Personal history of other mental and behavioral disorders Status: Chronic Assessment and Plan: No acute issues Continue with home medications (6) Chronic GERD: Code(s): K21.9 - Gastro-esophageal reflux disease without esophagitis Status: Acute Assessment and Plan: No acute issues Continue with home medication. (7) Diabetes: Code(s): E11.9 - Type 2 diabetes mellitus without complications Status: Chronic Assessment and Plan: A1c 6.4 Accuchecks ACHS, hypoglycemia protocol, correctional insulin, heart healthy diet during stay Continue metformin (8) Atrial fibrillation: Code(s): I48.91 - Unspecified atrial fibrillation Status: Chronic Assessment and Plan: Tele shows apparent NSR. Rate controlled Continue with Eliquis and metoprolol. F/u with PCP/information security associate (9) Thoracic aortic aneurysm: Code(s): I71.2 - Thoracic aortic aneurysm, without rupture Status: Acute Assessment and Plan: Incidental lower thoracic aortic saccular 4.6 cm aneurysm. Per daughter in room, this has been known and is followed as an outpatient by a specialist at [facility]. continue monitoring per specialist recommendations DS: Summary Hospital Course Reason for hospitalization: Weakness, falls Hospital Course: Date of arrival: 02/11/21 Date of discharge: 02/12/21 Patient is a 75 yo F with history of atrial fibrillation (on Eliquis; metoprolol for rate control), DDD, neuropathy, DM, HTN, COPD, and known aortic aneurysm among other comorbid conditions who presented to the ED on 02/11 from home after falling at home. While in the ED, Head CT revealed no acute intracranial process. CVA of concern, thus patient admitted under this setting for further work up. Patient admitted to the hospitalist service. Please see H&P for further details. After admission, further imaging including Brain MRI, carotid doppler, lumbar spine CT, and echo (cancelled but still performed/read) were performed; this work up was grossly unremarkable for etiology behind symptoms and, more importantly, the brain MRI showed no evidence of acute process. Echo revealed normal EF with grade I diastolic disfunction and mild valvular disease; incidental cystic structure noted on Echo, however, 4.0cm hepatic cyst noted on abd
== END 2021-02-12 16:36 | disposition home health service (06) ==
LOC: ANHED 15:47 → ANH2MED 16:30
PROVIDERS: Nurse Practitioner; Admitting Provider Internal Medicine; Emergency Provider Emergency Medicine; PCP Family Medicine; Visit Provider Physician Assistant
DX: R53.1 Weakness (principal); W18.39XA Other fall on same level, initial encounter; R27.0 Ataxia, unspecified; E03.9 Hypothyroidism, unspecified; I10 Essential (primary) hypertension; I65.23 Occlusion and stenosis of bilateral carotid arteries; R29.6 Repeated falls; Z91.81 History of falling; I08.3 Combined rheumatic disorders of mitral, aortic and tricuspid valves; I27.20 Pulmonary hypertension, unspecified; R93.2 Abnormal findings on diagnostic imaging of liver and biliary tract; E78.00 Pure hypercholesterolemia, unspecified; K21.9 Gastro-esophageal reflux disease without esophagitis; I48.91 Unspecified atrial fibrillation; I71.2 Thoracic aortic aneurysm, without rupture; E11.40 Type 2 diabetes mellitus with diabetic neuropathy, unspecified; J44.9 Chronic obstructive pulmonary disease, unspecified; Z86.59 Personal history of other mental and behavioral disorders; Z79.01 Long term (current) use of anticoagulants; Z98.1 Arthrodesis status; Z79.84 Long term (current) use of oral hypoglycemic drugs; Z98.84 Bariatric surgery status; Z87.891 Personal history of nicotine dependence
CPT/HCPCS: 36415; 70450; 70553; 72131; 80053; 81003; 83036; 83605; 83735; 84443; 85025; 93005; 93306; 93880; 96360; 97161; 97165; 99285; A9270; A9577; G0378; J7030

== ENCOUNTER 2023-01-18 13:45 | Outpatient (CLI) | payer MEDICARE, SELFPAY ==
--- NOTE | ~2023-01-18 | DEXA_ITS ---
Bone Density Report Name: SAVANNAH PABLO Age: 77 Sex: Female Ethnicity: White Date of : 1945 Indication: postmenopausal; screening for osteoporosis; height loss; prior fracture; cancer; hysterectomy; Referring Provider: ELLIOTT, CLEM Collins Study: Bone densitometry was performed. Exam Date: January 18, 2023 Accession number: [id number] Bone Density: Region BMD T-score Z-score Classification Femoral Neck (Left) 0.625 -2.0 0.2 Osteopenia Total Hip (Left) 0.792 -1.2 0.8 Osteopenia Femoral Neck (Right) 0.682 -1.5 0.7 Osteopenia Total Hip (Right) 0.783 -1.3 0.7 Osteopenia Total Hip Mean 0.787 -1.3 0.8 Osteopenia World Health Organization criteria for BMD impression classify patients as: Normal (T-score at or above -1.0), Osteopenia (T-score between -1.0 and -2.5), or Osteoporosis (T-score at or below -2.5). 10-year Fracture Risk(1): Major Osteoporotic Fracture 20% Hip Fracture 4.8% Reported Risk Factors: [place] (), Neck BMD=0.625, BMI=35.5, previous fracture (1) FRAX(R) Version 3.08. Fracture probability calculated for an untreated patient. Fracture probability may be lower if the patient has received treatment. Clinical Information Provided by Patient: Has had a low trauma fracture Has used the following medications: Vitamin D, Calcium Has the following medical conditions: Cancer, Hysterectomy Patient maximum height was 63 Menopause Age: 30 No regular weight bearing exercise Onset of menses at age 11 Number of children 4 Impression: The patient has low bone mass, based on the Left Femoral Neck T-score. The patient has an estimated ten-year risk of hip fracture of 4.8% and an estimated ten-year risk of major fracture of 20%, based on the WHO FRAX algorithm. The patient has risk factors, including: previous fracture. Discussion: BONE DENSITY IS LOW AT ONE OR MORE SKELETAL SITES. THE PATIENT'S BMD AND CLINICAL RISK FACTORS CONTRIBUTE TO THIS PATIENT'S HIGH RISK OF FRACTURE. This patient's lowest T-score is low at one or more skeletal sites. It meets the World Health Organization's (WHO) criteria for ?low bone mass? (T-score between -1.0 and -2.5). The patient's 10-year risk of hip fracture and 10 year risk of a major osteoporotic fracture as calculated by FRAX exceeds the threshold where pharmacological therapy is recommended by the National Osteoporosis Foundation (NOF). However, all treatment decisions require clinical judgment and consideration of individual patient factors, including patient preferences, comorbidities, previous drug use, risk factors not captured in the FRAX model (e.g., frailty, falls, vitamin D deficiency, increased bone turnover, interval significant decline in bone density) and possible under or overestimation of fracture risk by FRAX. The patient should follow
== END 2023-01-18 13:46 | disposition home or self-care (01) ==
PROVIDERS: PCP Family Medicine; Visit Provider Nurse Practitioner Family
DX: C50.812 Malignant neoplasm of overlapping sites of left female breast (principal); Z17.0 Estrogen receptor positive status [ER+]; M85.852 Other specified disorders of bone density and structure, left thigh; M85.851 Other specified disorders of bone density and structure, right thigh
CPT/HCPCS: 77080

== ENCOUNTER 2023-03-10 00:49 | Day surgery (SDC) | payer MEDICARE, SELFPAY ==
[2023-02-25 10:03] VITALS: BMI 36.1
--- NOTE | 2023-02-28 15:47 | PC.NURSE ---
Pt was called and instructed to stop taking her eliquis on 03/07/23, she had no new health hx to add since last interview on 02/25/23
--- NOTE | 2023-03-09 20:18 | PM.HPGS ---
History of Present Illness History of Present Illness Consent: Risks, benefits, and alternatives have been discussed and questions answered. Patient agrees to proceed with procedure. Chief complaint: neoplasm screening Narrative: Evonne Mancilla is a 77 year old female referred for coloncancer screening Review of Systems Review of Systems: All systems reviewed & are unremarkable except as noted in HPI and below PMFSH Past Medical History Medical History Abdominal aortic aneurysm Atrial fibrillation On Eliquis Chronic GERD Degenerative disc disease Diabetes History of depression History of left heart catheterization Hypercholesterolemia Hypertension Hypothyroidism Mild chronic obstructive pulmonary disease As for PFTs in 2016 Thoracic aortic aneurysm Vocal cord paralysis Weakness Surgical History Surgical History H/O cardiac catheterization X2 without intervention H/O colonoscopy with polypectomy H/O thyroidectomy History of appendectomy History of back surgery History of hysterectomy History of laparoscopic adjustable gastric banding Family History Family History Sibling Family history of diabetes mellitus in first degree relative Family history of lung cancer Family history of malignant neoplasm of uterus Family history of heart disease in male family member before age 55 Hypertension Family history of congenital heart disease Family history of type 2 diabetes mellitus Mother Family history of malignant neoplasm of brain Social History Social History Social History: The patient is . 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 She desires to be a full code. She does not have a durable power employment law attorney for healthcare. She has 4 children. She is a former smoker. She does not drink alcohol or use illicit drugs. Smoking packs per day: 0.5 Smoking cigarettes per day: 10.0 Years smoked: 50 Smoking pack-years: 25.00 Smoking status: Current every day smoker Tobacco type: cigarettes Second hand tobacco smoke exposure: No Smoking end date: 11/14/12 Alcohol intake: current Substance use: never Substance use type: does not use Living arrangements: with family Gender identity (if verbalized by the patient): Female Spiritual care concerns: No Meds Home Medications and Allergies Home Medications Medication Instructions Recorded Confirmed Type amlodipine 10 mg tablet 10 mg PO DAILY 02/11/21 02/28/23 History apixaban 5 mg tablet (Eliquis) 5 mg PO BID 02/11/21 02/28/23 History atorvastatin 10 mg tablet 10 mg PO DAILY 02/11/21 02/28/23 History letrozole 2.5 mg tablet 2.5 mg PO DAILY 02/11/21 02/28/23 History magnesium 250 mg tablet 250 mg PO DAILY 02/11/21 02/28/23 History melatonin 5 mg tablet 5 mg PO HS PRN Insomnia 02/11/21 02/28/23 History metformin 500 mg tablet,extended 1,000 mg PO QAM 02/11/21 02/28/23 History release 24 hr metformin 500 mg tablet,extended 500 mg PO HS 02/11/21 02/28/23 History release 24 hr metoprolol tartrate 25 mg tablet 25 mg PO BID 02/11/21 02/28/23 History mirabegron 50 mg tablet,extended 50 mg PO DAILY 02/11/21 02/28/23 History release 24 hr (Myrbetriq) multivit with minerals-iron 18 1 tablet PO DAILY 02/11/21 02/28/23 History mg-folic ac 400 mcg-vit K 25 mcg tablet (Adults Multivitamin) omeprazole 40 mg capsule,delayed 40 mg PO DAILY 02/11/21 02/28/23 History release potassium 99 mg tablet 198 mg PO BID 02/11/21 02/28/23 History vitamins A,C,C-upbr-xxzyvh 2,148 1 tablet PO BID 02/11/21 02/28/23 History mcg-113 mg-45 mg-17.4 mg tablet docusate sodium 100 mg tablet 100 mg PO HS 02/25/23 02/28/23 History (Stool Softener) furosemide 20 mg tablet 20 mg PO DAILY 02/25/23 04
--- NOTE | 2023-03-10 10:27 | WPDANESEPPF ---
Anes - Initial Pre Proc Eval Procedure: Operation Date: 03/10/23 11:30 Proposed Procedures p Screening Colonoscopy - Dyllan Ledesma MD Date/Time: 03/10/23 10:27 Surgeon: Dyllan Ledesma MD Pre Op Diagnosis: neoplasm screening Patient Data Age: 77 Gender: F Height: 1.52 m Weight: 84 kg Allergies Allergy/AdvReac Type Severity Reaction Status Date / Time cephalexin Allergy Intermediate Itching Verified 03/10/23 10:27 Cephalosporins Allergy Intermediate KEFLEX-BURN Verified 03/10/23 10:27 ING,ITCHING ,RASH Kiwi Allergy Severe Swelling Uncoded 03/10/23 10:27 Home Medications Medication Instructions Recorded Confirmed Type amlodipine 10 mg tablet 10 mg PO DAILY 02/11/21 02/28/23 History apixaban 5 mg tablet (Eliquis) 5 mg PO BID 02/11/21 02/28/23 History atorvastatin 10 mg tablet 10 mg PO DAILY 02/11/21 02/28/23 History letrozole 2.5 mg tablet 2.5 mg PO DAILY 02/11/21 02/28/23 History magnesium 250 mg tablet 250 mg PO DAILY 02/11/21 02/28/23 History melatonin 5 mg tablet 5 mg PO HS PRN Insomnia 02/11/21 02/28/23 History metformin 500 mg tablet,extended 1,000 mg PO QAM 02/11/21 02/28/23 History release 24 hr metformin 500 mg tablet,extended 500 mg PO HS 02/11/21 02/28/23 History release 24 hr metoprolol tartrate 25 mg tablet 25 mg PO BID 02/11/21 02/28/23 History mirabegron 50 mg tablet,extended 50 mg PO DAILY 02/11/21 02/28/23 History release 24 hr (Myrbetriq) multivit with minerals-iron 18 1 tablet PO DAILY 02/11/21 02/28/23 History mg-folic ac 400 mcg-vit K 25 mcg tablet (Adults Multivitamin) omeprazole 40 mg capsule,delayed 40 mg PO DAILY 02/11/21 02/28/23 History release potassium 99 mg tablet 198 mg PO BID 02/11/21 02/28/23 History vitamins A,C,Q-fnoa-vlkudz 2,148 1 tablet PO BID 02/11/21 02/28/23 History mcg-113 mg-45 mg-17.4 mg tablet docusate sodium 100 mg tablet 100 mg PO HS 02/25/23 02/28/23 History (Stool Softener) furosemide 20 mg tablet 20 mg PO DAILY 02/25/23 02/28/23 History losartan 50 mg tablet 50 mg PO DAILY 02/25/23 02/28/23 History memantine 10 mg tablet 10 mg PO BID 02/25/23 02/28/23 History Patient hx anesthesia problems: none Family hx anesthesia problems: none Results Review: All pre-operative results and documents have been reviewed as part of the pre-operative evaluation. [facility] Past Medical History Medical History Abdominal aortic aneurysm Atrial fibrillation On Eliquis Chronic GERD Degenerative disc disease Diabetes History of depression History of left heart catheterization Hypercholesterolemia Hypertension Hypothyroidism Mild chronic obstructive pulmonary disease As for PFTs in 2016 Thoracic aortic aneurysm Vocal cord paralysis Weakness Surgical History Surgical History H/O cardiac catheterization X2 without intervention H/O colonoscopy with polypectomy H/O thyroidectomy History of appendectomy History of back surgery History of hysterectomy History of laparoscopic adjustable gastric banding Family History Family History Sibling Family history of diabetes mellitus in first degree relative Family history of lung cancer Family history of malignant neoplasm of uterus Family history of heart disease in male family member before age 55 Hypertension Family history of congenital heart disease Family history of type 2 diabetes mellitus Mother Family history of malignant neoplasm of brain Social History Social History Social History: The patient is . 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 She desires to be a full code. She does not have a durable power tax associate attorney for healthcare. She has 4 children. She is a former smoker. She does not drink alcohol or
[2023-03-10 10:29] VITALS: BP 146/52; PULSE 52; RESP 20; TEMP 36.3; O2SAT 99
[2023-03-10 10:52] LABS: Glucose Point of Care 80 mg/dl (65-105)
[2023-03-10] MEDS: LACTATED RINGERS 1,000 ML 150 ML IV CONT (11:06)
[2023-03-10 11:38] VITALS: BP 111/50; PULSE 77; RESP 17; O2SAT 98
[2023-03-10 11:48] VITALS: BP 116/65; PULSE 76; RESP 19; O2SAT 98
[2023-03-10 11:58] VITALS: BP 118/68; PULSE 74; RESP 20; O2SAT 99
== END 2023-03-10 12:15 | disposition home or self-care (01) ==
PROVIDERS: PCP Family Medicine; Visit Provider Internal Medicine Gastroenterology
PROC: 0DJD8ZZ Inspection of Lower Intestinal Tract, Via Natural or Artificial Opening Endoscopic (ICD-10-PCS; CPT 45378; principal; 2023-03-10 11:30)
DX: Z12.11 Encounter for screening for malignant neoplasm of colon (principal); K57.30 Diverticulosis of large intestine without perforation or abscess without bleeding; I48.91 Unspecified atrial fibrillation; E11.9 Type 2 diabetes mellitus without complications; I10 Essential (primary) hypertension; E78.00 Pure hypercholesterolemia, unspecified; E89.0 Postprocedural hypothyroidism; J44.9 Chronic obstructive pulmonary disease, unspecified; I71.20 Thoracic aortic aneurysm, without rupture, unspecified; Z79.811 Long term (current) use of aromatase inhibitors; Z98.84 Bariatric surgery status; Z79.84 Long term (current) use of oral hypoglycemic drugs; Z79.01 Long term (current) use of anticoagulants; Z87.891 Personal history of nicotine dependence; E66.9 Obesity, unspecified; Z68.35 Body mass index [BMI] 35.0-35.9, adult
CPT/HCPCS: G0121; 82948; J2704; J7120

== ENCOUNTER 2023-04-16 15:40 | Observation (INO) | payer MEDICARE, SELFPAY ==
[2023-04-16] VITALS (20 sets, daily range): BP systolic 87–151; BP diastolic 52–81; PULSE 64–130; RESP 13–21; TEMP 36.3–36.9; O2SAT 93–99; BMI 35.7
--- NOTE | ~2023-04-16 | XR_ITS ---
XR chest 1V portable DATE: 04/17/2023 10:17 INDICATION: Wheezing, shortness of breath TECHNIQUE: Portable upright AP view on 04/2023 at 1010 hours COMPARISON: 05/13/2023 AP and lateral views FINDINGS: Normal heart size. Aortic calcification, ectasia and mild tortuosity. No hilar or mediastin al enlargement. No pulmonary infiltrate or consolidation, pleural effusion or pulmonary vascular paris estion or pneumothorax. Surgical clips overlie the upper abdomen. Lap band is noted. Diffuse osteopenia. IMPRESSION: No active cardiac pulmonary disease Aortic atherosclerosis Osteopenia Lap band Postoperative change of the abdomen Reviewed, dictated and finalized at location A.
--- NOTE | ~2023-04-16 | XR_ITS ---
Clinical Indication: Weakness AP and lateral views of the chest: Comparison: 04/18/2020 Findings: The lungs are clear, without evidence of focal consolidation or pleural effusion. Cardiome diastinal silhouette is within normal limits. Bones and soft tissues are unremarkable. Impression: Clear lungs. Reviewed, dictated and finalized at location . Impression: Clear lungs.
--- NOTE | 2023-04-16 15:50 | ECG_ITS ---
Measurements Intervals [place] Rate: 118 P: [place]: 0 QRS: -27 QRSD: 97 T: 14 QT: 328 QTc: 460 Interpretive Statements ATRIAL FIBRILLATION WITH RAPID VENTRICULAR RESPONSE BORDERLINE LEFT AXIS DEVIATION [QRS AXIS < -20] MODERATE ST DEPRESSION [0.05+ mV ST DEPRESSION] COMPARED TO ECG 02/11/2021 11:04:10 ATRIAL FIBRILLATION NOW PRESENT Electronically Signed On 04-17-2023 12:12:57 CDT by Meghann Ortiz M.D.
--- NOTE | 2023-04-16 16:08 | ED.WEAKNESS ---
HPI - Weakness General Chief complaint: Weakness Stated complaint: HYPOTENSION/tachy Time Seen by Provider: 04/16/23 15:55 History of Present Illness HPI Narrative: Patient is a 77-year-old female with a history of A-fib on Eliquis, hypertension presenting with weakness. Patient states that starting yesterday she began feeling generally weak. States that she continued to feel weak this morning and she checked her pulse and it was in the 130s. States that she checked her blood pressure and it was low in the 80s over 50s. States that she does have a history of A-fib but she normally does not have a problem with fast heart rates. States that she is compliant with Eliquis. States that she was very lightheaded and dyspneic with exertion earlier today. She reports some mild chest discomfort. Denies headache, numbness or weakness, cough, abdominal pain, vomiting, diarrhea, dysuria, leg swelling. Related Data Home Medications Medication Instructions Recorded Confirmed amlodipine 10 mg tablet 10 mg PO DAILY 02/11/21 04/16/23 apixaban 5 mg tablet (Eliquis) 5 mg PO BID 02/11/21 04/16/23 atorvastatin 10 mg tablet 10 mg PO DAILY 02/11/21 04/16/23 letrozole 2.5 mg tablet 2.5 mg PO DAILY 02/11/21 04/16/23 magnesium 250 mg tablet 250 mg PO DAILY 02/11/21 04/16/23 melatonin 5 mg tablet 5 mg PO HS Insomnia 02/11/21 04/16/23 metformin 500 mg tablet,extended 1,000 mg PO QAM 02/11/21 04/16/23 release 24 hr metformin 500 mg tablet,extended 500 mg PO HS 02/11/21 04/16/23 release 24 hr metoprolol tartrate 25 mg tablet 25 mg PO BID 02/11/21 04/16/23 mirabegron 50 mg tablet,extended 50 mg PO DAILY 02/11/21 04/16/23 release 24 hr (Myrbetriq) multivit with minerals-iron 18 1 tablet PO DAILY 02/11/21 04/16/23 mg-folic ac 400 mcg-vit K 25 mcg tablet (Adults Multivitamin) omeprazole 40 mg capsule,delayed 40 mg PO DAILY 02/11/21 04/16/23 release potassium 99 mg tablet 198 mg PO BID 02/11/21 04/16/23 docusate sodium 100 mg tablet 100 mg PO HS 02/25/23 04/16/23 (Stool Softener) furosemide 20 mg tablet 20 mg PO DAILY 02/25/23 04/16/23 losartan 50 mg tablet 50 mg PO DAILY 02/25/23 04/16/23 memantine 10 mg tablet 10 mg PO BID 02/25/23 04/16/23 benzonatate 200 mg capsule 200 mg PO BID PRN Cough 04/16/23 04/16/23 Allergies Allergy/AdvReac Type Severity Reaction Status Date / Time cephalexin Allergy Intermediate Itching Verified 04/16/23 15:51 Cephalosporins Allergy Intermediate KEFLEX-BURN Verified 04/16/23 15:51 ING,ITCHING ,RASH Kiwi Allergy Severe Swelling Uncoded 04/16/23 15:51 Review of Systems Review of Systems: All systems reviewed & are unremarkable except as noted in HPI and below PMFSH Past Medical History Medical History Abdominal aortic aneurysm Breast cancer Chronic anemia Chronic anticoagulation Chronic GERD Degenerative disc disease Depression Hypercholesterolemia Hypertension Hypothyroidism Mild chronic obstructive pulmonary disease Obstructive sleep apnea Intolerant to CPAP. Paroxysmal atrial fibrillation Thoracic aortic aneurysm Type 2 diabetes mellitus Vocal cord paralysis Surgical History Surgical History History of appendectomy History of back surgery History of colonoscopy with polypectomy History of hysterectomy History of laparoscopic adjustable gastric banding History of left heart catheterization History of ovarian cystectomy History of partial thyroidectomy Family History Family History Sibling Family history of heart disease in male family member before age 55 Family history of lung cancer Family history of diabetes mellitus in first degree relative Family history of malignant neoplasm of uterus Family history of congenital heart disease Family history of type 2 diabetes mellitus Hypertension Mother Family history of malig
[2023-04-16] MEDS: SODIUM CHLORIDE 0.9% IV 1,000 ML 999 ML IV CONT (16:11)
[2023-04-16 16:13] LABS: Basophils Absolute Auto 0.1 K/mm3 (0.0-0.1); Basophils Percent Auto 0.5 % (0.2-1.2); Eosinophils Absolute Auto 0.2 K/mm3 (0-0.3); Eosinophils Percent Auto 1.9 % (0-4.4); Hematocrit 32.9 % (37.0-47.0); Hemoglobin 10.9 g/dL (12.0-15.0); Immature Granulocyte Absolute 0.04 K/mm3 (0.00-0.031); Immature Granulocyte Percent A 0.4 % (0-0.5); Lymphocytes Absolute Auto 1.84 K/mm3 (0.9-3.2); Lymphocytes Percent Auto 19.8 % (18.3-44.2); Mean Corpuscular HGB Conc 33.1 g/dl (32-36); Mean Corpuscular Hemoglobin 30.4 pg (26-34); Mean Corpuscular Volume 91.6 fl (80-100); Mean Platelet Volume 10.7 fl (7.4-10.4); Monocytes Absolute Auto 0.6 K/mm3 (0.1-0.6); Monocytes Percent Auto 6.4 % (2.6-8.5); Neutrophils Absolute Auto 6.6 K/mm3 (1.3-6.7); Platelet Count Result 189 k/mm3 (150-375); Red Blood Count 3.59 M/mm3 (4.2-5.4); Red Cell Distribution Width 13.7 % (11.5-14.5); White Blood Count 9.3 K/mm3 (4.5-10.0)
[2023-04-16 16:23] LABS: Alanine Aminotransferase 17 U/L (6-35); Albumin Level 4.4 g/dL (3.5-5.1); Alkaline Phosphatase 123 U/L (38-126); Anion Gap 8 mmol/L (8-16); Aspartate Amino Transferase 22 U/L (14-36); Bilirubin,Total 0.4 mg/dL (0.2-1.3); Blood Urea Nitrogen 46 mg/dL (7-17); Calcium 8.9 mg/dL (8.4-10.2); Carbon Dioxide 28 mmol/L (22-30); Chloride 104 mmol/L (98-107); Estimated CRCL calculation 27 ml/min; Estimated Glomerular Filt Rate 34; Glucose 118 mg/dL (65-110); Lipase 116 U/L (23-300); Potassium 4.5 mmol/L (3.4-5.0); Sodium 140 mmol/L (137-145)
[2023-04-16 16:25] LABS: INR 1.2; Prothrombin Time 15.8 Seconds (11.1-14.7)
[2023-04-16 16:26] LABS: Partial Thromboplastin Time 44.4 SECONDS (22.3-36.8)
[2023-04-16 16:35] LABS: NT Pro B Type Natriuretic Pept 473 pg/mL (19.9-100); Troponin I < 0.012 ng/mL (0.000-0.034)
[2023-04-16] MEDS: dilTIAZem 100 MG/100 ML 100 MG/100 ML BAG IV CONT (17:00)
[2023-04-16] MEDS: dilTIAZem HCl INJ 25 MG/5 ML VIAL 10 MG IV PUSH (17:00)
[2023-04-16 17:13] LABS: Appearance Urine Clear (Clear); Bacteria Urine None Seen /hpf; Bilirubin Urine Negative (Negative); Blood Urine Negative (Negative); Color Urine Yellow (Yellow); Glucose Urine UA Negative (Negative); Ketones Urine Negative (Negative); Leukocyte Esterase Ur 2+ LEU/UL (Negative); Nitrate Urine Negative (Negative); Non Pathogenic Casts 0-2; Protein Urine Negative (Negative); RBC Urine 0-2 /hpf (0-2); Squamous Epithelial Cell Urine None seen /hpf (Few); Urobilinogen Urine 0.2 mg/dL (<2.0)
[2023-04-16 17:19] LABS: Add Urine Microscopic? YES
[2023-04-16 19:10] LABS: Troponin I < 0.012 ng/mL (0.000-0.034)
--- NOTE | 2023-04-16 19:34 | PC.NURSE ---
This patient, Evonne Mancilla, was admitted to IMU Room 202-01. Patient/family oriented to hospital policies and general routines including ID bracelet, bed and alarms, visiting hours, pain management, procedures, bathroom and other care routines, personal items, smoking policy, room service/diet, and visiting hours. Information on how to activate the Rapid Response Team has been discussed. Patient/Family are encouraged to report perceived risks to care and to ask questions if they do not understand what they are told or what they should do.
[2023-04-16 19:54] LABS: Glucose Point of Care 94 mg/dl (65-105)
--- NOTE | 2023-04-16 22:27 | PM.IMHP ---
H&P: HPI History of Present Illness Date/Time: 04/16/23 19:00 Chief Complaint: Weakness. Narrative: This is a pleasant 77-year-old female with paroxysmal atrial fibrillation on chronic anticoagulation, hypertension, type 2 diabetes mellitus, and other comorbidities who presented to the emergency department for evaluation of weakness. Patient provides the following history. The last couple of weeks she has had intermittent episodes of sharp shooting pain in the left arm which radiates into the left neck and jaw occasionally associated with shortness of breath or lightheadedness. She sees no pattern as to when this occurs and denies that is related to exertion only. She saw her grinder setup operator, Dr. Christianson, for evaluation and she is currently wearing an event monitor. Over the last couple of days she has become increasingly weak and this morning she felt worse and she was quite lightheaded upon standing. She checked her vital signs and reports that her pulse was 130 and that her blood pressure was in the low 80s over 50s. On arrival to the emergency department she was in atrial fibrillation with rapid ventricular response with rate of 130 and her blood pressure was 133/74. She was bolused IV fluids and was started on a diltiazem drip and she has since converted to a normal sinus rhythm. At the time my evaluation she thinks she is feeling a bit better but she has not got up and about so she can not say for sure. She states compliance with her home medications. She believes she has been eating and drinking okay and she denies nausea, vomiting, and diarrhea. She has not noticed a decrease in urine output. She denies recent change in medications. Review of Systems Review of Systems: Twelve systems were reviewed and are negative except for as per HPI. [facility] Past Medical History Medical History (Updated 04/16/23 @ 22:35 by Gin Hughes PA-C) Abdominal aortic aneurysm Breast cancer Chronic anemia Chronic anticoagulation Chronic GERD Degenerative disc disease Depression Hypercholesterolemia Hypertension Hypothyroidism Mild chronic obstructive pulmonary disease Obstructive sleep apnea Intolerant to CPAP. Paroxysmal atrial fibrillation Thoracic aortic aneurysm Type 2 diabetes mellitus Vocal cord paralysis Surgical History Surgical History (Updated 04/16/23 @ 22:31 by Gin Hughes PA-C) History of appendectomy History of back surgery History of colonoscopy with polypectomy History of hysterectomy History of laparoscopic adjustable gastric banding History of left heart catheterization History of ovarian cystectomy History of partial thyroidectomy Family History Family History Sibling Family history of heart disease in male family member before age 55 Family history of lung cancer Family history of diabetes mellitus in first degree relative Family history of malignant neoplasm of uterus Family history of congenital heart disease Family history of type 2 diabetes mellitus Hypertension Mother Family history of malignant neoplasm of brain Father Myocardial infarction Social History Social History (Updated 04/16/23 @ 22:32 by Gin Hughes PA-C) Social History: Surrogate medical decision maker: Marlena Morin, daughter. Code status: Full code. Smoking packs per day: 1 Smoking cigarettes per day: 20.0 Years smoked: 50 Smoking pack-years: 50.00 Smoking status: Former smoker Tobacco type: cigarettes Second hand tobacco smoke exposure: No Smoking end date: 11/14/12 Alcohol intake: never Substance use: never Substance use type: does not use Lack of Transportation: No Lack of Food: Never True Current Housing: I Have Housing Concerned About Future Housing: No Difficulty Paying Gas/Electric Bills: No Difficulty Paying for Meds: No Currently Unemployed: No Education: High School Diploma/GED Difficulty w/ Child
[2023-04-16 23:00] LABS: Troponin I < 0.012 ng/mL (0.000-0.034)
[2023-04-16] MEDS: APIXABAN 5 MG TABLET PO (23:25)
[2023-04-16] MEDS: MELATONIN 5 MG TABLET PO (23:25)
[2023-04-16] MEDS: METOPROLOL TARTRATE 25 MG TABLET PO (23:25)
[2023-04-17] VITALS (9 sets, daily range): BP systolic 112–149; BP diastolic 47–54; PULSE 43–70; RESP 16–100; TEMP 36.3–36.6; O2SAT 97–100
[2023-04-17 04:50] LABS: Hematocrit 28.3 % (37.0-47.0); Hemoglobin 9.2 g/dL (12.0-15.0); Mean Corpuscular HGB Conc 32.5 g/dl (32-36); Mean Corpuscular Hemoglobin 30.1 pg (26-34); Mean Corpuscular Volume 92.5 fl (80-100); Platelet Count Result 170 k/mm3 (150-375); Red Blood Count 3.06 M/mm3 (4.2-5.4); Red Cell Distribution Width 13.8 % (11.5-14.5); White Blood Count 6.7 K/mm3 (4.5-10.0)
[2023-04-17 05:06] LABS: Anion Gap 6 mmol/L (8-16); Blood Urea Nitrogen 44 mg/dL (7-17); Calcium 8.1 mg/dL (8.4-10.2); Carbon Dioxide 28 mmol/L (22-30); Chloride 106 mmol/L (98-107); Estimated CRCL calculation 31 ml/min; Estimated Glomerular Filt Rate 40; Glucose 78 mg/dL (65-110); Magnesium 2.3 mg/dL (1.6-2.3); Potassium 4.1 mmol/L (3.4-5.0); Sodium 140 mmol/L (137-145)
[2023-04-17 05:13] LABS: Hemoglobin A1C 5.8 % (<5.7)
[2023-04-17 08:00] LABS: Glucose Point of Care 81 mg/dl (65-105)
[2023-04-17] MEDS: amLODIPine BESYLATE 5 MG TABLET 10 MG PO (09:08)
[2023-04-17] MEDS: METOPROLOL TARTRATE 25 MG TABLET PO (09:08)
[2023-04-17] MEDS: LETROZOLE (*CHEMO) 2.5 MG TABLET PO (09:08)
[2023-04-17] MEDS: POTASSIUM CHLORIDE 10 MEQ TABLET PO (09:08)
[2023-04-17] MEDS: APIXABAN 5 MG TABLET PO (09:09)
[2023-04-17] MEDS: MEMANTINE 10 MG TABLET PO (09:09)
[2023-04-17] MEDS: ATORVASTATIN 10 MG TABLET PO (09:09)
[2023-04-17] MEDS: MAGNESIUM OXIDE 200 MG TABLET PO (09:09)
[2023-04-17] MEDS: MIRABEGRON 50 MG ER TABLET PO (09:09)
[2023-04-17] MEDS: PANTOPRAZOLE 40 MG TABLET PO (09:09)
[2023-04-17] MEDS: MULTIVITAMINS /C LUTEIN (CENTRUM SILVER) TABLET *BKC 1 TAB PO (09:09)
--- NOTE | 2023-04-17 11:09 | PM.CNCAR ---
Assessment and Plan Assessment and plan (1) Atrial fibrillation with rapid ventricular response: Code(s): I48.91 - Unspecified atrial fibrillation Status: Acute (2) Paroxysmal atrial fibrillation: Code(s): I48.0 - Paroxysmal atrial fibrillation Status: Acute (3) Chronic anticoagulation: Code(s): Z79.01 - ferry terminal supervisor (current) use of anticoagulants Status: Acute Plan Patient presented in atrial fibrillation with RVR, however converted to sinus rhythm and has remained in sinus rhythm. Still wearing event monitor that was placed by Dr. Christianson's office. Continue Eliquis. Continue Metoprolol. Patient feeling better now that she is in sinus. Okay for discharge from my standpoint. Patient to follow up with Dr. Christianson. History of Present Illness History of Present Illness Consult date/time: 04/17/23 11:09 Requesting physician: Yonis Emanuel MD Consult reason: atrial fibrillation Reason For Visit: Afib w/RVR Narrative: We are consulted for atrial fibrillation with RVR. This is a 77-year-old female with history of atrial fibrillation, follows with Dr. Christianson. Patient states she got an event monitor placed at Dr. Christianson's office on Tuesday. For the past couple of days, she states she has not been feeling well. Came to [place] [facility] for further evaluation. Found to be in atrial fibrillation with RVR. Given Diltiazem, and then converted to normal rhythm. Patient has remained in sinus since then. She states she is feeling better this morning. Review of Systems Review of Systems: All systems reviewed & are unremarkable except as noted in HPI and below (HPI) [facility] Past Medical History Medical History Abdominal aortic aneurysm Breast cancer Chronic anemia Chronic anticoagulation Chronic GERD Degenerative disc disease Depression Hypercholesterolemia Hypertension Hypothyroidism Mild chronic obstructive pulmonary disease Obstructive sleep apnea Intolerant to CPAP. Paroxysmal atrial fibrillation Thoracic aortic aneurysm Type 2 diabetes mellitus Vocal cord paralysis Surgical History Surgical History History of appendectomy History of back surgery History of colonoscopy with polypectomy History of hysterectomy History of laparoscopic adjustable gastric banding History of left heart catheterization History of ovarian cystectomy History of partial thyroidectomy Family History Family History Sibling Family history of heart disease in male family member before age 55 Family history of lung cancer Family history of diabetes mellitus in first degree relative Family history of malignant neoplasm of uterus Family history of congenital heart disease Family history of type 2 diabetes mellitus Hypertension Mother Family history of malignant neoplasm of brain Father Myocardial infarction Social History Social History Social History: Surrogate medical decision maker: Marlena Morin, daughter. Code status: Full code. Smoking packs per day: 1 Smoking cigarettes per day: 20.0 Years smoked: 50 Smoking pack-years: 50.00 Smoking status: Former smoker Tobacco type: cigarettes Second hand tobacco smoke exposure: No Smoking end date: 11/14/12 Alcohol intake: never Substance use: never Substance use type: does not use Lack of Transportation: No Lack of Food: Never True Current Housing: I Have Housing Concerned About Future Housing: No Difficulty Paying Gas/Electric Bills: No Difficulty Paying for Meds: No Currently Unemployed: No Education: High School Diploma/GED Difficulty w/ Childcare or Family Care: No Living arrangements: with family Additional living arrangements comments: . Lives in her own home. She has 4 children. Additional occ
--- NOTE | 2023-04-17 11:22 | PM.DS ---
DS: Admitting Diagnosis Discharge Date 04/17/2023 Admitting Diagnosis Shortness of breath DS: Discharge Diagnosis Discharge Diagnosis (1) Atrial fibrillation with rapid ventricular response: Code(s): I48.91 - Unspecified atrial fibrillation Status: Acute (2) Acute kidney injury: Code(s): N17.9 - Acute kidney failure, unspecified Status: Acute (3) Chronic anemia: Code(s): D64.9 - Anemia, unspecified Status: Acute (4) Chronic anticoagulation: Code(s): Z79.01 - care home (current) use of anticoagulants Status: Acute (5) Hypertension: Code(s): I10 - Essential (primary) hypertension Status: Chronic DS: Summary Hospital Course Hospital Course: The patient presented to the emergency department for evaluation of weakness and her heart rate was in the 130s and her blood pressure was in the 80s over 50s after she woke up feeling weak and lightheaded. In the emergency department she was in atrial fibrillation with rapid ventricular response and she was started on a diltiazem drip; she subsequently converted to normal sinus rhythm. Her diltiazem drip was stopped. She was continued on her home metoprolol. Her Eliquis was continued during the hospital stay. She has recurrent atrial fibrillation and has been following up with psychiatry teacher. Cardiology was consulted for any further intervention while inpatient. She is advised to continue to follow up with regular psychiatry teacher for further evaluation and treatment. She is being set up for a stress test as well which is coming up soon. She also wished to go home and follow-up with her regular psychiatry teacher. She remained stable otherwise during the hospital stay. She did have a mild CHELA which resolved with some gentle hydration. Time Spent with Patient Time attestation: Total time spent providing and/or coordinating discharge services: 35 minutes Exam Narrative: General: Well-developed, nontoxic-appearing female sitting up in bed. HEENT: PERRL, EOMI. Sclera anicteric. Tacky mucous membranes. Neck: Supple. No JVD. Respiratory: Lungs are clear to auscultation bilaterally. Cardiovascular: Regular rate and rhythm with S1-S2. Gastrointestinal: Abdomen is soft, nontender, and nondistended with positive bowel sounds. Skin: Warm and dry. No rash or lesions on limited exam. Extremities: No cyanosis, clubbing, or edema. Radial and pedal pulses intact. Neurological: Alert. Cranial nerves 2-12 are grossly intact. No gross focal deficits to casual conversation. Psychiatric: Pleasant and cooperative with normal mood and affect. Judgment and insight intact. DS: Data Data Completed and Pending Labs on day of discharge: Labs from last 24 hours 04/17/23 04/17/23 04/16/23 07:40 04:24 22:16 WBC 6.7 RBC 3.06 L Hgb 9.2 L Hct 28.3 L MCV 92.5 MCH 30.1 MCHC 32.5 RDW 13.8 Plt Count 170 MPV 11.0 H Immature Gran % (Auto) Neut % (Auto) Lymph % (Auto) [place] % (Auto) Eos % (Auto) Baso % (Auto) Lymph # (Auto) [place] # (Auto) Eos # (Auto) Baso # (Auto) Abs Immat Gran (auto) Absolute Neuts (auto) Absolute Nucleated RBC Nucleated RBC % PT INR APTT Sodium 140 Potassium 4.1 Chloride 106 Carbon Dioxide 28 Anion Gap 6 L BUN 44 H Creatinine 1.30 H Estim Creat Clear Calc 31 Estimated GFR 40 L Glucose 78 POC Capillary Glucose 81 Hemoglobin A1c 5.8 H Calcium 8.1 L Magnesium 2.3 Total Bilirubin AST ALT Alkaline Phosphatase Troponin I < 0.012 NT-Pro-B Natriuret Pep Total Protein Albumin Lipase TSH (Reflex) 2.190 Urine Color Urine Appearance Urine pH Ur Specific Fowler Urine Protein Urine Glucose (UA) Urine Ketones Ur Blood (Man) Urine Nitrate Urine Bilirubin Urine Urobilinogen Leukocyte Esterase Rfl Urine RBC Urine WBC
== END 2023-04-17 12:17 | disposition home or self-care (01) ==
LOC: ANHED 17:16 → ANHIMU 18:42
PROVIDERS: Physician Assistant; Admitting Provider Internal Medicine; Emergency Provider Emergency Medicine; PCP Family Medicine; Visit Provider Internal Medicine
DX: I48.91 Unspecified atrial fibrillation (principal); N17.9 Acute kidney failure, unspecified; D64.9 Anemia, unspecified; I10 Essential (primary) hypertension; R53.1 Weakness; I95.9 Hypotension, unspecified; R06.00 Dyspnea, unspecified; I70.0 Atherosclerosis of aorta; I71.40 Abdominal aortic aneurysm, without rupture, unspecified; I71.20 Thoracic aortic aneurysm, without rupture, unspecified; M85.80 Other specified disorders of bone density and structure, unspecified site; E11.9 Type 2 diabetes mellitus without complications; F32.A Depression, unspecified; E03.9 Hypothyroidism, unspecified; J44.9 Chronic obstructive pulmonary disease, unspecified; K21.9 Gastro-esophageal reflux disease without esophagitis; R07.9 Chest pain, unspecified; F17.210 Nicotine dependence, cigarettes, uncomplicated; F10.90 Alcohol use, unspecified, uncomplicated; Z79.01 Long term (current) use of anticoagulants; Z79.84 Long term (current) use of oral hypoglycemic drugs; Z79.899 Other long term (current) drug therapy; Z98.84 Bariatric surgery status; Z83.3 Family history of diabetes mellitus; Z82.49 Family history of ischemic heart disease and other diseases of the circulatory system
CPT/HCPCS: 36415; 71045; 71046; 80048; 80053; 81001; 82948; 83036; 83690; 83735; 83880; 84443; 84484; 85025; 85027; 85610; 85730; 87086; 87088; 93005; 96361; 96365; 96366; 96374; 99285; A9270; G0378; J7030

== ENCOUNTER 2024-07-31 14:14 | Outpatient (CLI) | payer MEDICARE, SELFPAY ==
--- NOTE | ~2024-07-31 | MR_ITS ---
MR brain/brain stem wo con Ordering provider: Manuel Haq MD History: 79 years Female with . R51.9 - Headache, unspecified . Comparison: CT head performed yesterday. Technique: MRI brain was performed without contrast. FINDINGS: BONES: Normal. CRANIOCERVICAL JUNCTION: normal. PITUITARY: Partial empty sella turcica. 3 MAJOR INTRACRANIAL VESSELS: Normal flow void. OPTIC NERVES AND CRANIAL NERVES VII AND VIII COMPLEXES: Grossly normal. BRAIN PARENCHYMA AND CSF SPACES: Mild nonspecific T2 white matter hyperintensities are seen in a mehul ateral periventricular and deep white matter distribution which are likely related to chronic ischemi c small vessel disease. Mild diffuse cortical atrophy. Old lacunar infarct in the left caudate head. The brainstem and cerebellum are normal. No acute or chronic intracranial hemorrhage. No extra axial fluid collections. Diffusion weighted and ADC mapping images reveal no recent ischemia. No midline s hift or mass effect. PARANASAL SINUSES: Normal. MASTOIDS: Normal SUPERFICIAL/SURROUNDING SOFT TISSUES: Normal. IMPRESSION: 1. No acute intracranial process. Reviewed, dictated and finalized at location A.
== END 2024-07-31 14:15 | disposition home or self-care (01) ==
PROVIDERS: PCP Family Medicine; Visit Provider Family Medicine
DX: R51.9 Headache, unspecified (principal)
CPT/HCPCS: 70551

== ENCOUNTER 2024-10-18 11:50 | Outpatient (CLI) | payer MEDICARE, SELFPAY ==
[2024-10-18 12:43] LABS: Estimated Glomerular Filt Rate 43
== END 2024-10-18 11:51 | disposition home or self-care (01) ==
LOC: ANHLAB 11:53
PROVIDERS: PCP Family Medicine; Visit Provider Internal Medicine Cardiovascular Disease
DX: R07.9 Chest pain, unspecified (principal); I11.9 Hypertensive heart disease without heart failure; I35.8 Other nonrheumatic aortic valve disorders; I87.2 Venous insufficiency (chronic) (peripheral); I48.91 Unspecified atrial fibrillation; D64.9 Anemia, unspecified; M51.369 Other intervertebral disc degeneration, lumbar region without mention of lumbar back pain or lower extremity pain; E11.9 Type 2 diabetes mellitus without complications; E66.9 Obesity, unspecified; E78.5 Hyperlipidemia, unspecified; Z13.6 Encounter for screening for cardiovascular disorders
CPT/HCPCS: 36415; 82565

== ENCOUNTER 2025-10-07 08:55 | Outpatient (CLI) | payer MEDICARE, SELFPAY ==
--- NOTE | ~2025-10-07 | CT_ITS ---
EXAMINATION:CT diagnostic chest wo con DATE: 10/07/2025 09:14 INDICATION: Smoking history. TECHNIQUE: Computed tomography (CT) of the chest was performed without intravenous contrast. Automated exposure control and iterative reconstruction technique were employed. The dose-length product (DLP) was 267.72 mGy-cm. COMPARISON: Chest x-ray dated 04/17/2023. FINDINGS: Moderate emphysematous changes of lungs. No pulmonary mass or nodule are seen. Severe calcific atherosclerotic changes of the thoracic aorta. Aneurysm at the junction of thoracic aorta and abdominal aorta measuring 45 mm in AP diameter. Severe multivessel coronary artery calcification. Apparent Biopsy changes of the left breast. No axillary adenopathy. IMPRESSION: 1. Emphysematous lungs. 2. Severe calcific atherosclerotic changes thoracic aorta. Aneurysm at the junction of the ascending thoracic aorta and abdominal aorta measuring 45 mm in AP diameter. The significant multivessel coronary artery calcifications. 4. Apparent biopsy changes of the left breast. These correlate with clinical history. Reviewed, dictated and finalized at location T. RIAL EXPEDITOR IMPRESSION: 1. Emphysematous lungs. 2. Severe calcific atherosclerotic changes thoracic aorta. Aneurysm at the junc tion of the ascending thoracic aorta and abdominal aorta measuring 45 mm in AP diameter. The significant multivessel coronary artery calcifications. 4. Apparent biopsy changes of the left breast. These correlate with clinical hi story.
--- NOTE | ~2025-10-07 | DEXA_ITS ---
Bone Density Report Name: SAVANNAH URIBE Age: 80 Sex: Female Ethnicity: White Date of : 1945 Indication: osteopenia; height loss; cancer; hysterectomy; Referring Provider: BAYRON ELLIS Study: Bone densitometry was performed. Exam Date: October 07, 2025 Accession number: [id number] Bone Density: Region BMD T-score Z-score Classification Femoral Neck (Left) 0.642 -1.9 0.5 Osteopenia Total Hip (Left) 0.729 -1.7 0.4 Osteopenia Femoral Neck (Right) 0.643 -1.9 0.5 Osteopenia Total Hip (Right) 0.710 -1.9 0.2 Osteopenia Total Hip Mean 0.719 -1.8 0.3 Osteopenia World Health Organization criteria for BMD impression classify patients as: Normal (T-score at or above -1.0), Osteopenia (T-score between -1.0 and -2.5), or Osteoporosis (T-score at or below -2.5). 10-year Fracture Risk(1): Major Osteoporotic Fracture 15% Hip Fracture 6.0% Reported Risk Factors: [place] (), Neck BMD=0.642, BMI=33.6, smoking (1) FRAX(R) Version 3.08. Fracture probability calculated for an untreated patient. Fracture probability may be lower if the patient has received treatment. Previous Exams: -- Region Exam Age BMD T-score BMD Change BMD Change Date g/cm2 vs Baseline vs Previous -- Total Hip(Left) 10/07/2025 80 0.729 -1.7 -7.9%* -7.9%* 01/18/2023 77 0.792 -1.2 Total Hip(Right) 10/07/2025 80 0.710 -1.9 -9.4%* -9.4%* 01/18/2023 77 0.783 -1.3 -- *Denotes significance at 95% confidence level, LSC for Total Hip = 0.027 g/cm2 Clinical Information Provided by Patient: Smokes Has used the following medications: Vitamin D, Calcium Has the following medical conditions: Cancer, Hysterectomy, breast cancer Patient maximum height was 63 Menopause Age: 36 No regular weight bearing exercise Onset of menses at age 11 Number of children 4 Impression: The patient has low bone mass, based on the Right Total Hip T-score. The patient has an estimated ten-year risk of hip fracture of 6% and an estimated ten-year risk of major fracture of 15%, based on the WHO FRAX algorithm. The patient has risk factors, including: smoking. The BMD for the Total Hip(Left) decreased, changing by -7.9% since the last DXA exam. The BMD for the Total Hip(Right) decreased, changing by -9.4% since the last DXA exam. Discussion: BONE DENSITY IS LOW AT ONE OR MORE SKELETAL SITES. THE PATIENT'S BMD AND CLINICAL RISK FACTORS CONTRIBUTE TO THIS PATIENT'S INCREASED RISK OF FRACTURE. This patient's lowest T-score is low at one or more skeletal sites. It meets the World Health Organization's (WHO) criteria for ?low bone mass? (T-score between -1.0 and -2.5). The patient's 10-year risk of hip fracture as calculated by FRAX exceeds the threshold where pharmacological therapy is recommended by the National Osteoporosis Foundation (NOF). However, all treatment decisions require clinical judgment and consideration of individual patient factors, including patient preferences, comorbidities, previous drug use, risk factors not captured in the FRAX model (e.g., frailty, falls, vitamin D deficiency, increased bone turnover, interval significant decline in bone density) and possible under or overestimation of fracture risk by FRAX. The patient should follow a healthful lifestyle (good nutrition with adequate calcium and vitamin D, and appropriate weight-bearing exercise). Follow-Up: Consider a repeat BMD and Vertebral Fracture Assessment (VFA) exam in 2 years or sooner if medically necessary, to reassess this patient's status. Reported by: MORAIMA on 10/07/2025 9:44:00 AM. Reviewed, dictated and finalized at location A.
== END 2025-10-07 08:56 | disposition home or self-care (01) ==
LOC: MICIMG 08:57
PROVIDERS: PCP Family Medicine; Visit Provider Family Medicine
DX: Z12.2 Encounter for screening for malignant neoplasm of respiratory organs (principal); Z87.891 Personal history of nicotine dependence; Z78.0 Asymptomatic menopausal state; M85.88 Other specified disorders of bone density and structure, other site; J43.9 Emphysema, unspecified; I71.21 Aneurysm of the ascending aorta, without rupture; I25.10 Atherosclerotic heart disease of native coronary artery without angina pectoris
CPT/HCPCS: 71250; 77080